=== PATIENT | female | born 1950 | race Caucasian/White ===

== ENCOUNTER → 2023-04-10 14:15 | Outpatient (REF) | payer MEDICARE, SELFPAY | LOC: RAD 14:15 | PROVIDERS: ATTENDING PHYSICIAN Family Medicine | DX: R59.1 Generalized enlarged lymph nodes (principal) | CPT/HCPCS: 70491; Q9967 ==

== ENCOUNTER → 2023-06-05 13:15 | Outpatient (REF) | payer MEDICARE, SELFPAY | LOC: RAD 13:15 | PROVIDERS: ATTENDING PHYSICIAN Family Medicine | DX: M25.419 Effusion, unspecified shoulder (principal) | CPT/HCPCS: 71130 ==

== ENCOUNTER → 2023-12-15 13:17 | Outpatient (REF) | payer MEDICARE, SELFPAY | LOC: HWWDC 13:17 | PROVIDERS: ATTENDING PHYSICIAN Surgery; FAMILY PHYSICIAN Family Medicine | DX: Z12.31 Encounter for screening mammogram for malignant neoplasm of breast (principal) | CPT/HCPCS: 77063; 77067 ==

== ENCOUNTER 2024-12-15 14:31 | Outpatient (RCR) | payer MEDICARE, SELFPAY | END 2024-12-15 23:59 | disposition home or self-care (01) | LOC: RPT 14:31 | PROVIDERS: ATTENDING PHYSICIAN Physician Assistant; FAMILY PHYSICIAN Family Medicine | DX: R15.1 Fecal smearing (principal); Z73.6 Limitation of activities due to disability; K59.00 Constipation, unspecified; R32 Unspecified urinary incontinence | CPT/HCPCS: 97110; 97161; 97530 ==

== ENCOUNTER → 2024-12-19 12:40 | Outpatient (REF) | payer MEDICARE, SELFPAY | LOC: HWWDC 12:40 | PROVIDERS: ATTENDING PHYSICIAN Surgery; FAMILY PHYSICIAN Family Medicine | DX: Z12.31 Encounter for screening mammogram for malignant neoplasm of breast (principal) | CPT/HCPCS: 77063; 77067 ==

== ENCOUNTER 2025-01-13 12:22 | Outpatient (RCR) | payer MEDICARE, SELFPAY | END 2025-01-13 23:59 | disposition home or self-care (01) | LOC: RPT 12:22 | PROVIDERS: ATTENDING PHYSICIAN Physician Assistant; FAMILY PHYSICIAN Family Medicine | DX: R15.1 Fecal smearing (principal); Z73.6 Limitation of activities due to disability; K59.00 Constipation, unspecified; R32 Unspecified urinary incontinence | CPT/HCPCS: 97110; 97112 ==